=== PATIENT | male | born 1970 | race Two or more races ===

== ENCOUNTER 2022-06-16 15:41 | Emergency (ER) | payer OTHER ==
[~2022-06-16] VITALS: Ht 172.7 cm; Wt 77.0 kg
[~2022-06-16 15:41] MED LIST: OMEP20CA4
[2022-06-16] MEDS ORDERED: KETOROLAC 60MG/2ML VIAL IM ONE (18:15)
[2022-06-16] MEDS ORDERED: T3 PO (19:29)
[2022-06-16 19:59] VITALS: BP 112/88
== END 2022-06-16 19:59 | disposition home or self-care (01) ==
LOC: ER 15:41
DX: R07.89 Other chest pain (principal); R07.81 Pleurodynia; E11.9 Type 2 diabetes mellitus without complications; I10 Essential (primary) hypertension
CPT/HCPCS: 71101; 96372; 99283; J1885